=== PATIENT | male | born 1990 | race Caucasian/White ===

== ENCOUNTER 2019-12-14 15:34 | Observation (INO) | payer BC, OTHER ==
[~2019-12-14] VITALS: Ht 170.2 cm; Wt 53.4 kg
[2019-12-14] MEDS ORDERED: SODIUM CHLORIDE 0.9% 1,000 ML IV ONE (16:21)
[2019-12-14] MEDS ORDERED: SODIUM CHLORIDE 0.9% 1,000ML IVBOLUS ONE ×2 (16:30→18:00)
[2019-12-14] MEDS ORDERED: ONDANSETRON 2MG/ML, 2ML IVPush ONE ×2 (16:30→18:30)
[2019-12-14] MEDS ORDERED: FAMOTIDINE 20 MG/2 ML IV ONE (16:30)
[2019-12-14] MEDS ORDERED: SODIUM CHLORIDE FLUSH 10ML SYR IVF ONE (16:30)
[2019-12-14] MEDS ORDERED: ONDANSETRON 2MG/ML, 2ML ONE ×2 (16:40→18:05)
[2019-12-14] MEDS ORDERED: FAMOTIDINE 20 MG/2 ML ONE (16:41)
--- NOTE | 2019-12-14 16:45 | NUR ---
Assumed care of patient. C/O N/V, coffee grounds emesis, and black stool. Patient reports hx of alcohol abuse, but states last use was 8 days ago. Placed on NIBP, pulse ox, and campus monitor. Father at bedside.
[2019-12-14] MEDS ORDERED: LORazepam 2 MG/ML, 1ML ONE (16:47)
[2019-12-14] MEDS ORDERED: LORazepam 2 MG/ML, 1ML IVPush ONE (17:00)
[2019-12-14 17:25] LABS: ALANINE AMINOTRANSFERASE 41 U/L (12-78); ALBUMIN 4.6 g/dL (3.4-5.0); ANION GAP 13 mmol/L (5-15); CHLORIDE 94 mmol/L (98-107); CREATININE 1.49 mg/dL (0.7-1.3)
[2019-12-14 17:27] LABS: ALKALINE PHOSPHATASE 99 U/L (45-117); BILIRUBIN,TOTAL 4.9 mg/dL (0.2-1.0); TOTAL PROTEIN 9.1 g/dL (6.4-8.2)
[2019-12-14 17:31] LABS: BASOPHILS % (AUTO) 0 % (0-1); EOSINOPHILS % (AUTO) 0 % (1-7); LYMPHOCYTES # (AUTO) 0.46 x10^3/uL (1-3.4); LYMPHOCYTES % (AUTO) 3 % (22-44); MD NO; MEAN CORPUSCULAR HEMOGLOBIN 31.6 pg (27.5-34.5); MEAN CORPUSCULAR HGB CONC 33.6 g/dL (33.2-36.2); MEAN CORPUSCULAR VOLUME 94.1 fL (81-97); MEAN PLATELET VOLUME 8.7 fL (7.4-10.4); MONOCYTES # (AUTO) 0.57 x10^3/uL (0.2-0.8); MONOCYTES % (AUTO) 4 % (2-9); NEUTROPHILS # (AUTO) 12.74 x10^3/uL (1.8-6.8); NEUTROPHILS % (AUTO) 93 % (42-75); PLATELET COUNT 194 x10^3/uL (130-400); RED BLOOD COUNT 5.69 x10^6/uL (4.38-5.82); RED CELL DISTRIBUTION WIDTH 12.1 % (9.4-14.8)
--- NOTE | 2019-12-14 18:05 | NUR ---
Not tolerating PO. aware.
[2019-12-14 18:32] LABS: ACETONE, SERUM Negative (Negative)
--- NOTE | 2019-12-14 19:26 | NUR ---
[facility]. No needs.
--- NOTE | 2019-12-14 20:25 | NUR ---
Report to STEVE Adam.
[2019-12-14 20:49] LABS: C-REACTIVE PROTEIN, QUANT 0.22 mg/dL (0.02-0.49)
[2019-12-14 21:03] LABS: HCT (SEDRATE) 45.2 % (39.2-51.8)
[2019-12-14 21:06] VITALS: BP 122/80
[2019-12-14] MEDS ORDERED: POTASSIUM CHLORIDE 20 MEQ, MAGNESIUM SULFATE 2 GM, THIAMINE 200 MG, MVI ADULT 10 ML, FO... IV SCH (21:15)
[2019-12-14] MEDS ORDERED: PROMETHAZINE 25 MG/ML, 1ML IM PRN (21:30)
[2019-12-14] MEDS ORDERED: morphine SULFATE 10 MG/ML, 1ML IVPush PRN (21:30)
[2019-12-14] MEDS ORDERED: TRAZODONE 50MG TABLET PO PRN (21:30)
[2019-12-14] MEDS ORDERED: ONDANSETRON 2MG/ML, 2ML IVPush PRN (21:30)
[2019-12-14] MEDS ORDERED: LABETALOL 5MG/ML, 20ML IVPush PRN (21:30)
[2019-12-14 22:40] LABS: INTERNATIONAL NORMALIZED RATIO 1.04 (0.93-1.1)
[2019-12-15 01:05] VITALS: BP 121/73
[2019-12-15 05:01] LABS: BASOPHILS # (AUTO) 0.04 x10^3/uL (0-0.1); BASOPHILS % (AUTO) 0 % (0-1); EOSINOPHILS # (AUTO) 0.02 x10^3/uL (0-0.4); EOSINOPHILS % (AUTO) 0 % (1-7); LYMPHOCYTES # (AUTO) 1.18 x10^3/uL (1-3.4); LYMPHOCYTES % (AUTO) 10 % (22-44); MD NO; MEAN CORPUSCULAR HEMOGLOBIN 32.1 pg (27.5-34.5); MEAN CORPUSCULAR HGB CONC 34.5 g/dL (33.2-36.2); MEAN CORPUSCULAR VOLUME 93.1 fL (81-97); MEAN PLATELET VOLUME 8.5 fL (7.4-10.4); MONOCYTES # (AUTO) 0.62 x10^3/uL (0.2-0.8); MONOCYTES % (AUTO) 5 % (2-9); NEUTROPHILS # (AUTO) 10.58 x10^3/uL (1.8-6.8); NEUTROPHILS % (AUTO) 85 % (42-75); PLATELET COUNT 142 x10^3/uL (130-400); RED BLOOD COUNT 4.48 x10^6/uL (4.38-5.82); RED CELL DISTRIBUTION WIDTH 11.7 % (9.4-14.8)
[2019-12-15 05:07] LABS: ALANINE AMINOTRANSFERASE 28 U/L (12-78); ALBUMIN 3.6 g/dL (3.4-5.0); ANION GAP 4 mmol/L (5-15); CALCIUM 8.5 mg/dL (8.5-10.1); CHLORIDE 105 mmol/L (98-107); CREATININE 0.97 mg/dL (0.7-1.3)
[2019-12-15 05:09] LABS: ALKALINE PHOSPHATASE 73 U/L (45-117); BILIRUBIN,TOTAL 4.2 mg/dL (0.2-1.0)
[2019-12-15 06:02] LABS: AMPHETAMINE SCREEN, URINE Negative (Negative); BARBITURATE SCREEN, URINE Negative (Negative); BENZODIAZEPINE SCREEN, URINE Negative (Negative); CANNABINOID SCREEN, URINE Negative (Negative); COCAINE SCREEN, URINE Negative (Negative); METHADONE SCREEN, URINE Negative (Negative); OPIATE SCREEN, URINE Negative (Negative)
[2019-12-15] MEDS ORDERED: POTASSIUM PHOSPHATE 44 MEQ in SODIUM CHLORIDE 0.9% 500 ML IV ONE (06:30)
[2019-12-15] MEDS ORDERED: POTASSIUM CHLORIDE 20 MEQ in SODIUM CHLORIDE 0.9% 250 ML IV ONE ×2 (06:30→14:00)
[2019-12-15 07:05] VITALS: BP 137/85
[2019-12-15] MEDS: PANTOPRAZOLE 40 MG IV IVPush SCH (10:08)
[2019-12-15 13:08] LABS: BASOPHILS # (AUTO) 0.03 x10^3/uL (0-0.1); BASOPHILS % (AUTO) 0 % (0-1); EOSINOPHILS # (AUTO) 0.06 x10^3/uL (0-0.4); EOSINOPHILS % (AUTO) 1 % (1-7); LYMPHOCYTES # (AUTO) 1.17 x10^3/uL (1-3.4); LYMPHOCYTES % (AUTO) 13 % (22-44); MD NO; MEAN CORPUSCULAR HEMOGLOBIN 31.7 pg (27.5-34.5); MEAN CORPUSCULAR VOLUME 93.2 fL (81-97); MEAN PLATELET VOLUME 7.9 fL (7.4-10.4); MONOCYTES # (AUTO) 0.53 x10^3/uL (0.2-0.8); MONOCYTES % (AUTO) 6 % (2-9); NEUTROPHILS # (AUTO) 7.12 x10^3/uL (1.8-6.8); NEUTROPHILS % (AUTO) 80 % (42-75); PLATELET COUNT 120 x10^3/uL (130-400); RED BLOOD COUNT 4.13 x10^6/uL (4.38-5.82); RED CELL DISTRIBUTION WIDTH 11.8 % (9.4-14.8)
[2019-12-15 13:31] VITALS: BP 126/88
[2019-12-15 20:08] VITALS: BP 124/77
[2019-12-16 02:37] VITALS: BP 124/78
[2019-12-16 05:06] LABS: ALBUMIN 3.7 g/dL (3.4-5.0); ANION GAP 6 mmol/L (5-15); CALCIUM 9.3 mg/dL (8.5-10.1); CHLORIDE 104 mmol/L (98-107)
[2019-12-16 05:11] LABS: ALANINE AMINOTRANSFERASE 35 U/L (12-78); ALKALINE PHOSPHATASE 73 U/L (45-117); BILIRUBIN,TOTAL 3.6 mg/dL (0.2-1.0); CREATININE 0.79 mg/dL (0.7-1.3); TOTAL PROTEIN 7.6 g/dL (6.4-8.2)
[2019-12-16] MEDS: PANTOPRAZOLE 40 MG IV IVPush SCH (07:38)
[2019-12-16 08:30] VITALS: BP 135/88
[2019-12-16] MEDS ORDERED: PANT40GR PO (12:41)
[2019-12-16] MEDS ORDERED: ONDA4TAB7 PO (12:41)
[2019-12-16 15:00] VITALS: BP 128/85
== END 2019-12-16 15:25 | disposition home or self-care (01) ==
LOC: ED 18:20 → INTOOBSV 18:21 → EDIP 18:21 → ED 18:32 → 4EST 20:55
PROVIDERS: ADMIT Family Medicine; ATTEND Internal Medicine
DX: F10.239 Alcohol dependence with withdrawal, unspecified (principal); E86.0 Dehydration; E87.6 Hypokalemia; N17.0 Acute kidney failure with tubular necrosis; E80.6 Other disorders of bilirubin metabolism; E87.1 Hypo-osmolality and hyponatremia; E86.1 Hypovolemia; E83.42 Hypomagnesemia; D72.829 Elevated white blood cell count, unspecified; F17.200 Nicotine dependence, unspecified, uncomplicated; E87.2 Acidosis; E80.7 Disorder of bilirubin metabolism, unspecified; R74.0 Nonspecific elevation of levels of transaminase and lactic acid dehydrogenase [LDH]; E83.39 Other disorders of phosphorus metabolism; K92.2 Gastrointestinal hemorrhage, unspecified; Z88.0 Allergy status to penicillin; Z86.74 Personal history of sudden cardiac arrest
CPT/HCPCS: 36415; 74022; 76705; 80053; 80074; 80307; 82010; 83605; 83690; 83735; 84100; 84132; 84145; 84443; 85025; 85610; 85651; 86140; 93005; 96361; 96365; 96366; 96368; 96375; 96376; 99285; C9113; G0378; J2060; J2405; J3411; J3475; J3480; J3490; J7030; J7040; J7042; J7050; 96374